=== PATIENT | female | born 1990 | race Asian ===

== ENCOUNTER 2019-01-31 22:36 | Emergency (ER) | payer SELFPAY ==
[~2019-01-31] VITALS: Ht 157.5 cm; Wt 49.9 kg
[2019-01-31 22:42] VITALS: BP 120/80
--- NOTE | 2019-01-31 22:42 | NUR ---
ED Nurse Note: EMT report Pt was in restaurant and c/o abdominal pain. Pt was talking to herself when triage, and states she has no pain anymore.
--- NOTE | 2019-01-31 23:05 | NUR ---
ED Nurse Note: PT IS RESTING IN BED AT THE MOMENT. PT BELONGINGS ARE AT BEDSIDE
--- NOTE | 2019-01-31 23:06 | NUR ---
ED Nurse Note: AWAITING FURTHER ERMD ORDERS
[2019-02-01 00:37] VITALS: BP 118/76
--- NOTE | 2019-02-01 00:40 | NUR ---
ED Nurse Note: REASSESSED PT, PER PT DENIES ABD PAIN. PT VSS AT THE MOMENT, PT IS RESTING IN BED.
--- NOTE | 2019-02-01 00:47 | Emergency Room Report ---
History of Present Illness General Chief Complaint: Abdominal Pain Source: Patient Present Illness HPI Is a 28-year-old [place] female presents with chief complaint abdominal pain. 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 Security was called and she started complaining abdominal pain. She has had to call 911. She told paramedics that she had abdominal pain after taking a bowel movement. Pain was 3 out of 10. Here she denies any pain. Denies any nausea vomiting. Denies any other complaint. Allergies: Coded Allergies: Dairy (Verified Allergy, Unknown, 01/31/19) Patient History Past Medical History: none, see triage record, old chart reviewed Past Surgical History: none Pertinent Family History: none Social History: Denies: smoking Last Menstrual Period: unable to access, pt didn't answer question Now: No Immunizations: other Reviewed Nursing Documentation: PMH: Agreed; PSxH: Agreed Nursing Documentation-PMH Hx Asthma: Yes Review of Systems Eye: Denies: eye pain, blurred vision ENT: Denies: ear pain, nose congestion, throat swelling Respiratory: Denies: cough, shortness of breath Cardiovascular: Denies: chest pain, palpitations Gastrointestinal: Reports: abdominal pain; Denies: diarrhea, nausea, vomiting Musculoskeletal: Denies: back pain, joint pain Skin: Denies: rash Neurological: Denies: headache, numbness Endocrine: Denies: increased thirst, increased urine Hematologic/Lymphatic: Denies: easy bruising All Other Systems: negative except mentioned in HPI Physical Exam Vital Signs Date Time Temp Pulse Resp B/P (MAP) Pulse Ox O2 Delivery O2 Flow Rate FiO2 01/31/19 22:31 98.1 72 18 120/80 98 Room Air vitals normal Sp02 EP Interpretation: reviewed, normal General Appearance: well appearing, no apparent distress, alert Head: normocephalic, atraumatic Eyes: bilateral eye PERRL, bilateral eye EOMI ENT: hearing grossly normal, normal pharynx Neck: full range of motion, supple, no meningismus Respiratory: chest non-tender, lungs clear, normal breath sounds Cardiovascular #1: regular rate, rhythm, no murmur Gastrointestinal: normal bowel sounds, non tender, no mass, no organomegaly, no bruit, non-distended Musculoskeletal: back normal, gait/station normal, normal range of motion Psychiatric: mood/affect normal Skin: warm/dry Medical Decision Making Diagnostic Impression: Primary Impression: Abdominal pain Qualified Codes: R10.84 - Generalized abdominal pain Additional Impression: Behavior disorder ER Course Patient presents with abdominal pain. No pain here. Eating drinking without any problem. I suspect that she has some underlying psychiatric issue. No criteria for 5150. She's calm. No hallucination. Denies any drugs or alcohol. Last Vital Signs Date Time Temp Pulse Resp B/P (MAP) Pulse Ox O2 Delivery O2 Flow Rate FiO2 02/01/19 00:37 98.2 68 19 118/76 98 Room Air Status: improved Disposition: HOME, SELF-CARE Condition: Stable Referrals: NOT CHOSEN IPA/,REFERRING (PCP) Patient Instructions: Abdominal Pain, Adult Additional Instructions: Follow-up with your Dr. in 7 days. Return if worse. Justin Marie MD Feb 01, 2019 00:47
[2019-02-01 00:54] VITALS: BP 118/76
--- NOTE | 2019-02-01 00:55 | NUR ---
ER DISCHARGE NOTE: Patient is cleared to be discharged per ERMD, pt is aox4, on room air, with stable vital signs. pt was given dc and prescription instructions, pt was able to verbalize understanding, pt id band removed. pt is able to ambulate with steady gait. pt took all belongings.
== END 2019-02-01 00:55 | disposition home or self-care (01) ==
LOC: EDBD 22:36 → EMR 23:10
DX: R10.84 Generalized abdominal pain (principal); F91.9 Conduct disorder, unspecified; J45.909 Unspecified asthma, uncomplicated
CPT/HCPCS: 99283